=== PATIENT | male | born 1990 | race African-American/Black ===

== ENCOUNTER 2018-12-11 12:10 | Emergency (ER) | payer SELFPAY ==
[~2018-12-11] VITALS: Ht 172.7 cm; Wt 54.7 kg
[~2018-12-11 12:10] MED LIST: AMOX875T PO; CYCL-331 PO; HYDR-3165 PO; POLY10DR OU
[2018-12-11] MEDS ORDERED: IV NORMAL SALINE 1,000ML 1,000 ML IV SCH (12:16)
[2018-12-11] MEDS ORDERED: PROPOFOL 100 ML IV ONE (12:19)
[2018-12-11] MEDS ORDERED: PROPOFOL 100 ML IV PRN (12:20)
[2018-12-11 12:45] LABS: BASO # 0.1 x10^3/uL (0.0-0.2); BASO % 0 % (0-3); EOS % 0 % (0-3); HEMATOCRIT 43.2 % (39.0-53.0); HEMOGLOBIN 14.9 g/dL (13.0-17.5); LYMPH # 0.4 x10^3/uL (1.0-4.8); LYMPH % 2 % (24-48); MEAN CORPUSCULAR HEMOGLOBIN 31 pg (25-35); MEAN CORPUSCULAR HGB CONC 35 g/dL (31-37); MEAN CORPUSCULAR VOLUME 91 fL (79-100); MONO # 2.4 x10^3/uL (0.0-1.1); MONO % 10 % (0-9); NEUT # 21.4 x10^3uL (1.8-7.7); NEUT % 88 % (31-73); PLATELET COUNT 299 x10^3/uL (140-400); RED BLOOD COUNT 4.77 x10^6/uL (4.30-5.70); RED CELL DISTRIBUTION WIDTH 12.4 % (11.5-14.5); WHITE BLOOD COUNT 24.4 x10^3/uL (4.0-11.0)
[2018-12-11 12:58] LABS: ALBUMIN 4.1 g/dL (3.4-5.0); ALBUMIN/GLOBULIN RATIO 0.9 (1.0-1.7); CALCIUM 9.5 mg/dL (8.5-10.1); CREATININE 1.5 mg/dL (0.7-1.3); GFR 67.4; POTASSIUM 3.3 mmol/L (3.5-5.1); TOTAL PROTEIN 8.7 g/dL (6.4-8.2)
[2018-12-11] MEDS ORDERED: MIDAZOLAM HCL PF 5 MG/5 ML VIAL. ONE (13:00)
[2018-12-11] MEDS ORDERED: ETOMIDATE 40 MG/20 ML VIAL. IV ONE (13:00)
[2018-12-11] MEDS ORDERED: VECURONIUM 10 MG VIAL. IV ONE (13:00)
[2018-12-11 13:08] LABS: AMPHETAMINE/METHAMPHETAMINE POS (NEG); BARBITURATES NEG (NEG); BENZODIAZEPINES NEG (NEG); CANNABINOIDS NEG (NEG); COCAINE NEG (NEG); METHADONE NEG (NEG); OPIATES NEG (NEG); PHENCYCLIDINE NEG (NEG)
[2018-12-11 13:12] LABS: BACTERIA,URINE FEW /HPF (0-FEW); BILIRUBIN,URINE NEG (NEG); CLARITY,URINE CLOUDY; COLOR,URINE AMBER; GLUCOSE,URINE NEG (NEG); NITRITE,URINE NEG (NEG); RBC,URINE OCC /HPF (0-2); SQUAMOUS EPITHELIAL CELL,UR FEW /LPF; UROBILINOGEN,URINE 1 mg/dL (0.2 mg/dL)
[2018-12-11 13:13] LABS: AMORPHOUS SEDIMENT,UR PRESENT /HPF; HYALINE CASTS, URINE FEW /HPF; SPERM,URINE PRESENT /HPF
--- NOTE | 2018-12-11 13:14 | RAD ---
PORTABLE CHEST 1V History: Trauma. Chest pain. Comparison: None. Findings: No consolidation or pleural effusion. Normal heart size. Prominent gaseous distention of the stomach. Endotracheal tube with tip 3.9 cm above the ashly. No pneumothorax. Impression: 1. Endotracheal tube tip 3.9 cm above the ashly. 2. Prominent gaseous distention of the stomach. Electronically signed by: Morris Patterson DO (12/11/2018 1:11 PM) [facility]
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
--- NOTE | 2018-12-11 13:30 | RAD ---
CT HEAD AND CERVICAL SPINE WO Date: 12/11/2018 12:16 PM Clinical Indication: Trauma Comparison: None. Technique: 5 mm axial tomographic images were obtained of the head without contrast. These were viewed on brain and bone windows. Axial helical images of the face were obtained without contrast. Axial and coronal reconstruction was performed. CT imaging of the cervical spine was performed without contrast. Coronal and sagittal reformatted images were performed. One or more of the following dose reduction techniques were utilized: Automated exposure control (AEC), Adjustment of mA and/or kV according to patient size, Use of iterative reconstruction technique such as ASiR, CT scan done according to ALARA and image gently/image wisely CT HEAD FINDINGS: The brain parenchyma is normal in attenuation. No intra- or extra-axial mass or fluid collection. No acute hemorrhage. The ventricles are normal in size, shape, and morphology. The ramos-white matter junction is normal. The basilar cisterns are patent. The mastoid air cells are clear. No aggressive osseous lesion or fracture. Left frontoparietal scalp swelling. CT FACE FINDINGS: There is no acute facial bone fracture. Mild maxillary sinus disease. The orbits are normal. The globes are intact. The nasal septum is deviated to the right. Poor dentition with multiple dental caries. CT CERVICAL SPINE FINDINGS: Patient is intubated. The cervical spine is normally aligned. No acute fracture. No aggressive lytic or blastic osseous lesion. The intervertebral disc heights are maintained. No high-grade spinal canal stenosis or neural foraminal narrowing. The thyroid gland is normal. No cervical lymphadenopathy. The visualized aerodigestive tract is unremarkable. The visualized lung apices are clear. Impression: 1. No acute intracranial process. Left frontoparietal scalp swelling. 2. No acute facial bone fracture. 3. No acute osseous abnormality of the cervical spine. Electronically signed by: Gregg Loco MD (12/11/2018 1:28 PM) [facility]
[2018-12-11 13:39] LABS: % BANDS 3 % (0-9); % LYMPHS 5 % (24-48); % MONOS 8 % (0-10); % SEGS 84 % (35-66); PLT ESTIMATE ADEQUATE (ADEQUATE)
[2018-12-11 13:40] LABS: TOXIC GRANULATION PRESENT; TOXIC VACUOLATION PRESENT
--- NOTE | 2018-12-11 13:46 | RAD ---
CT CHEST ABD PELVIS W/CONTRAST Clinical Indication: Trauma COMPARISON: None TECHNIQUE: Multiple contiguous axial images were obtained throughout the chest, abdomen, and pelvis with the use of IV contrast. Axial images were reformatted into coronal and sagittal planes. 75 mL Isovue-370 was administered. One or more of the following dose reduction techniques were utilized: Automated exposure control (AEC), Adjustment of mA and/or kV according to patient size, Use of iterative reconstruction technique such as ASiR, CT scan done according to ALARA and image gently/image wisely. Chest Findings: The thyroid is symmetric. There is no axillary, mediastinal, or hilar adenopathy. The thoracic aorta diameter is normal. The cardiac size is normal. There is no pericardial effusion. There is no suspicious pulmonary nodule. There is no focal consolidation. No pleural effusion is observed. There is no pneumothorax. Abdomen findings: The liver, gallbladder, spleen, pancreas, and left adrenal gland are unremarkable. Dystrophic calcification in the right adrenal gland, likely due to remote hemorrhage. The kidneys are unremarkable. There is no significant mesenteric or retroperitoneal adenopathy identified. There is no evidence of free intraperitoneal fluid or pneumoperitoneum. The stomach is well distended with gas. Visualized portions of the bowel are grossly unremarkable. Pelvis findings: The bladder is decompressed by Moore catheter. There is no significant pelvic ascites. No significant iliac or inguinal adenopathy is identified. Comminuted fracture of the third distal phalanx of the right hand (series 8 image 33). IMPRESSION: 1. No evidence of major traumatic thoracic injury. No evidence of abdominal solid organ injury. 2. Comminuted fracture of the third distal phalanx of the right hand. 3. No acute thoracic or lumbar spine fracture. No displaced rib fractures. Electronically signed by: Gregg Loco MD (12/11/2018 1:44 PM) [facility]
--- NOTE | 2018-12-11 13:50 | RAD ---
EXAM: Right long finger, 3 views. HISTORY: Trauma. COMPARISON: None. FINDINGS: 3 views of the right long finger are obtained. There is a comminuted fracture with overlying soft tissue defect involving the third distal phalanx. IMPRESSION: Comminuted fracture with associated surrounding soft tissue defect involving the third distal phalanx. Electronically signed by: Mercedes Pruitt MD (12/11/2018 1:47 PM) [facility]
[2018-12-11 14:22] VITALS: BP 101/65
[2018-12-11] MEDS ORDERED: ceFAZolin SODIUM 1 GM VIAL ONE (14:29)
[2018-12-11] MEDS ORDERED: IV NORMAL SALINE 100ML 100 ML ONE (14:30)
[2018-12-11] MEDS ORDERED: IV RINGERS SOLUTION,LACTATED 1,000 ML IV ONE (14:30)
[2018-12-11] MEDS ORDERED: ceFAZolin SODIUM 2 GM in IV DEXTROSE 5% 50 ML IV ONE (14:45)
[2018-12-11] MEDS ORDERED: PROPOFOL 10,000 MCG/ML (20ML) VIAL IV ONE (16:15)
== END 2018-12-11 14:50 | disposition short-term general hospital (02) ==
LOC: EEVIPCON 12:14 → MERGE 12:14 → EDBD 12:14 → ER 12:14
DX: S06.9X9A Unspecified intracranial injury with loss of consciousness of unspecified duration, initial encounter (principal); S62.632A Displaced fracture of distal phalanx of right middle finger, initial encounter for closed fracture; S01.01XA Laceration without foreign body of scalp, initial encounter; Y08.89XA Assault by other specified means, initial encounter; Y93.9 Activity, unspecified; Y92.89 Other specified places as the place of occurrence of the external cause; Y99.8 Other external cause status
CPT/HCPCS: 29130; 31500; 36415; 51702; 70450; 70486; 71045; 71260; 72125; 73140; 74177; 80053; 80307; 81001; 83605; 85007; 85025; 85610; 85730; 96360; 99291; G0480; J2250; J2704; J7030

== ENCOUNTER 2021-05-16 17:49 | Emergency (ER) | payer SELFPAY ==
[~2021-05-16] VITALS: Ht 172.7 cm; Wt 56.4 kg
[~2021-05-16 17:49] MED LIST changes: -CYCL-331 PO; +CYCL10TA19 PO
[2021-05-16 18:20] VITALS: BP 120/83
--- NOTE | 2021-05-16 18:35 | PHYS DOC ---
Past History Past Medical History: No Pertinent History (MARTHA PEREIRA APRN) Past Surgical History: No Surgical History (MARTHA PEREIRA APRN) Alcohol Use: None Drug Use: None (MARTHA PEREIRA APRN) General Adult EDM: Chief Complaint: SEXUALLY TRANSMITTED DISEASE HPI: HPI: Patient is a 30-year-old male who presents to the emergency department for an STD check. Patient reports that he is having pain with urination and urethral discharge that started yesterday. He denies any current fevers or lesions. He reports that he had unprotected sex 4 days ago. (MARTHA PEREIRA APRN) Review of Systems: Review of Systems: Constitutional: negative unless reported in HPI Eyes: negative unless reported in HPI HENT: negative unless reported in HPI Respiratory: negative unless reported in HPI Cardiovascular: negative unless reported in HPI GI: negative unless reported in HPI : negative unless reported in HPI Musculoskeletal: negative unless reported in HPI Integument: negative unless reported in HPI Neurologic: negative unless reported in HPI Endocrine: negative unless reported in HPI Lymphatic: negative unless reported in HPI Psychiatric: negative unless reported in HPI (MARTHA PEREIRA APRN) Allergies: Allergies: Allergies Coded Allergies Type Severity Reaction Last Updated Verified shellfish derived Allergy Severe FACIAL SWELLING 02/28/16 Yes (MARTHA PEREIRA APRN) Physical Exam: PE: Constitutional: Well developed, well nourished, no acute distress, non-toxic appearance. [] HENT: Normocephalic, atraumatic, bilateral external ears normal, oropharynx moist, no oral exudates, nose normal. [] Eyes: PERRL, EOMI, conjunctiva normal, no discharge. [] Neck: Normal range of motion, no tenderness, supple, no stridor. [] Cardiovascular: Normal peripheral perfusion Lungs & Thorax: Normal work of breathing, no tachypnea Abdomen: Soft and flat Skin: Warm, dry, no erythema, no rash. [] Back: No tenderness, no CVA tenderness. [] Extremities: No tenderness, no cyanosis, no clubbing, ROM intact, no edema. [] Neurologic: Alert and oriented X 3, normal motor function, normal sensory function, no focal deficits noted. [] Psychologic: Affect normal, judgement normal, mood normal. [] (MARTHA PEREIRA APRN) EKG: EKG: [] (MARTHA PEREIRA APRN) Radiology/Procedures: Radiology/Procedures: Laboratory Tests Test 05/16/21 18:25 Urine Collection Type Clean catch Urine Color Yellow Urine Clarity Clear Urine pH 7.0 Urine Specific Ewen 1.015 Urine Protein Neg Urine Glucose (UA) Neg mg/dL Urine Ketones (Stick) Neg mg/dL Urine Blood Trace Urine Nitrite Neg Urine Bilirubin Neg Urine Urobilinogen Dipstick 1.0 mg/dL Urine Leukocyte Esterase Large Urine RBC 1-2 /HPF Urine WBC >40 /HPF Urine Squamous Epithelial Cells Few /LPF Urine Bacteria Mod /HPF Current Medications Medications (Trade) Dose Ordered Sig/Mathew Route PRN Reason Start Time Stop Time Status Last Admin Dose Admin Doxycycline Hyclate (Vibra-Tab) 100 mg 1X ONCE PO 05/16/21 19:00 05/16/21 19:02 DC Ceftriaxone Sodium (Rocephin Im) 500 mg 1X ONCE IM 05/16/21 19:00 05/16/21 19:02 DC [] (MARHTA PEREIRA APRN) Heart Score: C/O Chest Pain: N/A Risk Factors: Risk Factors: DM, Current or recent (<one month) smoker, HTN, HLP, family history of CAD, obesity. Risk Scores: Score 0 - 3: 2.5% MACE over next 6 weeks - Discharge Home Score 4 - 6: 20.3% MACE over next 6 weeks - Admit for Clinical Observation Score 7 - 10: 72.7% MACE over next 6 weeks - Early Invasive Strategies (MARTHA PEREIRA APRN) Course & Med Decision Making: Course & Med Decision Making Pertinent Labs and Imaging studies reviewed. (See chart for details) [] Patient presents to the emergency department for pain with urination and urethral discharges started yesterday. Patient has a history of recent unprotected sex. Urinalysis performed to rule out urinary tract infection and gonorrhea and Chlamydia testing. Patient's UA positive for urinary tract infection. Patient would like prophylactic treatment for gonorrhea chlamydia and this was provided in the emergency department. Patient advised to not have sexual intercourse for 14 days and notify all of his sexual partners. I discussed with patient all findings and diagnostic testing as well as the need to follow-up with PCP for further evaluation and treatment or return to the ER if any new or worsening symptoms. Strict return precautions were also discussed at length. Patient voiced understanding and agreement with the plan. Patient is hemodynamically stable at the time of disposition. (MARTHA PEREIRA APRN) Dragon Disclaimer: Dragon Disclaimer: This electronic medical record was generated, in whole or in part, using a voice recognition dictation system. (MARTHA PEREIRA APRN) Departure Departure: Impression: Primary Impression: Urinary tract infection Qualified Codes: N30.00 - Acute cystitis without hematuria Additional Impression: Routine screening for STI (sexually transmitted infection) Disposition: HOME / SELF CARE / HOMELESS Condition: GOOD Referrals: PCP,NO (PCP) Patient Instructions: Sexually Transmitted Disease, [id number], Urinary Tract Infection Additional Instructions: You were seen in the emergency department for urethral discharge and pain with urination. You do have a urinary tract infection which will be treated with an antibiotic. Please start and finish the antibiotic completely. You requested prophylactic treatment for gonorrhea and chlamydia which included a shot that you received in the emergency department and a tablet called doxycycline. Please make sure you start and finish both of these medications completely. Please notify all of your sexual partners of your results when they become available in approximately 2 days. Please abstain from any sexual intercourse for 2 weeks. Follow-up with your primary care provider within a week. If you require comprehensive sexual transmitted infection testing please follow-up with the health department. Return to the emergency department if you develop worsening of your pain, intractable nausea or vomiting, high fevers refractory to treatment, abdominal pain. Scripts Doxycycline Hyclate (DOXYCYCLINE HYCLATE) 100 Mg Tablet 1 TAB PO BID for infection for 7 Days, #14 TAB 0 Refills Prov: MARTHA PEREIRA APRN 05/16/21 Cephalexin (KEFLEX) 500 Mg Capsule 1 CAP PO QID for uti for 7 Days, #28 CAP 0 Refills Prov: MARTHA PEREIRA APRN 05/16/21 Dragon Disclaimer This chart was dictated in whole or in part using Voice Recognition software in a busy, high-work load, and often noisy Emergency Department environment. It may contain unintended and wholly unrecognized errors or omissions. (GIBSON SUBRAMANIAN MD) Attending Signature Attending Signature I have participated in the care of this patient and I have reviewed and agree with all pertinent clinical information above including history, exam, and recommendations. (GIBSON SUBRAMANIAN MD) MARTHA PEREIRA APRN May 16, 2021 18:35 GIBSON SUBRAMANIAN MD May 18, 2021 19:00
[2021-05-16] MEDS ORDERED: DOXYCYCLINE HYCLATE 100 MG TABLET PO ONE (19:00)
[2021-05-16] MEDS ORDERED: cefTRIAXone IM 500 MG VIAL. IM ONE (19:00)
[2021-05-16 19:24] LABS: BILIRUBIN,URINE NEG (NEG); CLARITY,URINE CLEAR; COLOR,URINE YELLOW; GLUCOSE,URINE NEG (NEG)
[2021-05-16 19:25] LABS: BACTERIA,URINE MOD /HPF (0-FEW); NITRITE,URINE NEG (NEG); SQUAMOUS EPITHELIAL CELL,UR FEW /LPF; WBC,URINE >40 /HPF (0-4)
[2021-05-16] MEDS ORDERED: DOXY100T PO ×2 (19:37→19:38)
[2021-05-16] MEDS ORDERED: CEPH500C PO ×2 (19:37→19:38)
== END 2021-05-16 20:00 | disposition home or self-care (01) ==
LOC: ER 17:49
DX: Z11.3 Encounter for screening for infections with a predominantly sexual mode of transmission (principal); N30.00 Acute cystitis without hematuria; A74.9 Chlamydial infection, unspecified; A54.9 Gonococcal infection, unspecified; Z91.013 Allergy to seafood
CPT/HCPCS: 81001; 87086; 87491; 87591; 96372; 99283; J0696; 36415